=== PATIENT | female | born 1990 | race Two or more races ===

== ENCOUNTER 2023-04-10 09:45 | Outpatient (CLI) | payer OTHER | END 2023-04-10 09:51 | disposition home or self-care (01) | LOC: NUCLEAR 09:45 | PROVIDERS: ATTEND Internal Medicine | DX: R00.1 Bradycardia, unspecified (principal) ==

== ENCOUNTER 2024-10-07 09:23 | Outpatient (CLI) | payer OTHER | END 2024-10-07 09:24 | disposition home or self-care (01) | LOC: PRENATAL 09:23 | PROVIDERS: ATTEND Obstetrics & Gynecology Maternal & Fetal Medicine | DX: O36.80X0 Pregnancy with inconclusive fetal viability, not applicable or unspecified (principal); Z36.82 Encounter for antenatal screening for nuchal translucency; Z3A.11 11 weeks gestation of pregnancy ==

== ENCOUNTER 2024-10-30 21:32 | Emergency (ER) | payer OTHER ==
[~2024-10-30] VITALS: Ht 154.9 cm; Wt 85.3 kg
[2024-10-30] MEDS ORDERED: GILTUSS HONEY118 ML PO (23:17)
[2024-10-30] MEDS ORDERED: ZITHROMAX200 MG PO (23:17)
[2024-10-30] MEDS ORDERED: ACETAMINOPHEN500 M1 PO (23:17)
== END 2024-10-31 00:05 | disposition home or self-care (01) ==
LOC: ER 21:35
DX: O99.512 Diseases of the respiratory system complicating pregnancy, second trimester (principal); J06.9 Acute upper respiratory infection, unspecified; Z3A.15 15 weeks gestation of pregnancy

== ENCOUNTER → 2024-12-04 08:13 | Outpatient (CLI) | payer OTHER ==
[~2024-12-04 08:13] MED LIST: ACETAMINOPHEN500 M1 PO; GILTUSS HONEY118 ML PO; ZITHROMAX200 MG PO
== END | disposition home or self-care (01) ==
LOC: PRENATAL 08:13
PROVIDERS: ATTEND Obstetrics & Gynecology Maternal & Fetal Medicine
DX: O44.00 Complete placenta previa NOS or without hemorrhage, unspecified trimester (principal); Z3A.20 20 weeks gestation of pregnancy

== ENCOUNTER → 2025-01-28 11:35 | Outpatient (CLI) | payer OTHER | END | disposition home or self-care (01) | LOC: PRENATAL 11:35 | PROVIDERS: ATTEND Obstetrics & Gynecology Maternal & Fetal Medicine | DX: O26.849 Uterine size-date discrepancy, unspecified trimester (principal); O10.019 Pre-existing essential hypertension complicating pregnancy, unspecified trimester; O36.1999 Maternal care for other isoimmunization, unspecified trimester, other fetus; Z3A.28 28 weeks gestation of pregnancy ==

== ENCOUNTER 2025-03-09 16:29 | Outpatient (CLI) | payer OTHER | END 2025-03-09 16:32 | disposition home or self-care (01) | LOC: PRENATAL 16:29 | PROVIDERS: ATTEND Obstetrics & Gynecology | DX: O26.849 Uterine size-date discrepancy, unspecified trimester (principal); O36.8199 Decreased fetal movements, unspecified trimester, other fetus; O10.019 Pre-existing essential hypertension complicating pregnancy, unspecified trimester; Z3A.34 34 weeks gestation of pregnancy ==

== ENCOUNTER 2025-04-13 12:12 | Inpatient (IN) | payer OTHER ==
[~2025-04-13] VITALS: Ht 154.9 cm; Wt 3.2 kg
[2025-04-13] MEDS ORDERED: RINGERS SOLUTION,LACTATED 1,000 ML IV SCH (12:45)
[2025-04-13] MEDS ORDERED: AMPICILLIN SODIUM 2,000 MG VIAL IV ONE (12:45)
[2025-04-13 12:47] VITALS: BP 135/81
[2025-04-13] MEDS ORDERED: PRENATAL TABLE1 EAC1 PO (13:12)
[2025-04-13] MEDS ORDERED: ADULT LOW DOSE81 M1 PO (13:12)
[2025-04-13 14:34] LABS: URINE APPEARANCE Clear; URINE BILIRRUBIN Negative (NEGATIVE); URINE BLOOD Negative; URINE COLOR Yellow; URINE GLUCOSE Negative (NEGATIVE); URINE KETONE Negative (NEGATIVE); URINE LEUKOCYTE Negative; URINE NITRATE Negative; URINE PROTEIN Negative (NEGATIVE); URINE UROBILINOGEN 0.2 E.U./dl
[2025-04-13 14:41] LABS: BASO % 0.5 % (0.1-1.2); EOS # 0.07 (0.04-0.54); EOS % 0.8 % (0.7-7.0); LYMPH # 1.41 (1.18-3.74); LYMPH % 16.8 % (19.3-53.1); MEAN PLATELET VOLUME 13.80 fl (9.4-12.4); MONO # 0.79 (0.24-0.82); MONO % 9.4 % (4.7-12.5); NEUT # 6.05 (1.56-6.13); NEUT % 72.3 % (34.0-71.1); RED CELL DISTRIBUTION WIDTH 13.1 % (11.6-14.4)
[2025-04-13 14:41] LABS: URINE BACTERIA 388.5 uL (0.0-1933); URINE EPITHELIAL CELLS 6.4 uL (0.0-38.8); URINE WBC 4.9 uL (0.0-23.2)
[2025-04-13 14:49] LABS: URINE CAST 0.00 uL (0.0-1.40); URINE RBC 0.4 uL (0.0-20.8)
[2025-04-13 15:11] VITALS: BP 123/76
[2025-04-13 15:31] LABS: ALT/SGPT 23.0 U/L (12-78); AST/SGOT 17.0 U/L (15-37); BILIRUBIN TOTAL 0.33 mg/dL (0.3-1.2); BUN CREA RATIO 18.0 (7.0-25.0); CREATININE SERUM 0.49 mg/dL (0.55-1.02); GFR 144.56; GLOBULINA 3.4 G/DL (2.4-3.5); GLUCOSE FASTING 65.0 mg/dL (65-100); LDH 183.0 U/L (84-246); OSMOLALITY SERUM 278.0 MOSM/KG (275-295)
[2025-04-13 16:24] LABS: INR < 0.93
[2025-04-13] MEDS ORDERED: AMPICILLIN SODIUM 1,000 MG VIAL IV SCH (17:00)
[2025-04-13 18:48] VITALS: BP 115/76
[2025-04-14] VITALS (7 sets, daily range): BP systolic 113–129; BP diastolic 59–76
[2025-04-14] MEDS ORDERED: MISOPROSTOL 25 MCG/4 ML GEL.W.APPL VAG ONE ×4 (08:30→21:15)
[2025-04-15 02:59] VITALS: BP 113/73
[2025-04-15 07:36] VITALS: BP 116/67; BP 135/70
[2025-04-15] MEDS ORDERED: CEFAZOLIN SODIUM 1,000 MG VIAL IV SCH (09:45)
[2025-04-15] MEDS ORDERED: MORPHINE SULFATE 4 MG/ML CARTRIDGE IV PRN (12:15)
[2025-04-15] MEDS ORDERED: ONDANSETRON HCL 2 MG/ML VIAL IV PRN (12:15)
[2025-04-15] MEDS ORDERED: FF) RHO(D) IMMUNE GLOBULIN (POM) IM SCH (12:15)
[2025-04-15] MEDS ORDERED: OXYTOCIN 1,000 ML IV SCH (12:15)
[2025-04-15] MEDS ORDERED: CHLORHEXIDINE GLUCONATE 120 ML BOTTLE TOP NR (12:15)
[2025-04-15] MEDS ORDERED: RINGERS SOLUTION,LACTATED 1,000 ML IV SCH (12:15)
[2025-04-15] MEDS ORDERED: ONDANSETRON HCL 2 MG/ML VIAL IV NR (12:25)
[2025-04-15] MEDS ORDERED: KETOROLAC TROMETHAMINE 30 MG VIAL IV NR (12:25)
[2025-04-15] MEDS ORDERED: SIMETHICONE 125 MG CAPSULE PO SCH (13:00)
[2025-04-15] MEDS ORDERED: MORPHINE SULFATE 4 MG/ML VIAL IV ONE (13:50)
[2025-04-15 15:30] VITALS: BP 115/72
[2025-04-15] MEDS ORDERED: KETOROLAC TROMETHAMINE 30 MG VIAL IV SCH (18:00)
[2025-04-15] MEDS ORDERED: ACETAMINOPHEN 325 MG TABLET PO SCH (18:00)
[2025-04-16] VITALS: BP 108/69
[2025-04-16] MEDS ORDERED: OxyCODONE HCL 5 MG TABLET (ROXICODONE) PO PRN (06:00)
[2025-04-16 06:55] LABS: BASO % 0.4 % (0.1-1.2); EOS # 0.04 (0.04-0.54); EOS % 0.4 % (0.7-7.0); LYMPH # 1.08 (1.18-3.74); LYMPH % 10.7 % (19.3-53.1); MEAN PLATELET VOLUME 13.40 fl (9.4-12.4); MONO # 0.61 (0.24-0.82); MONO % 6.0 % (4.7-12.5); NEUT # 8.33 (1.56-6.13); NEUT % 82.3 % (34.0-71.1); RED CELL DISTRIBUTION WIDTH 13.3 % (11.6-14.4)
[2025-04-16 08:27] VITALS: BP 108/71
[2025-04-16 16:00] VITALS: BP 113/71
[2025-04-17 01:24] VITALS: BP 103/63
[2025-04-17] MEDS ORDERED: COLACE100 MG PO (08:05)
[2025-04-17] MEDS ORDERED: IBU800 MG PO (08:05)
[2025-04-17] MEDS ORDERED: SIMETHICONE125 M1 PO (08:05)
[2025-04-17 08:34] VITALS: BP 96/60
== END 2025-04-17 14:53 | disposition home or self-care (01) | DRG 787 ==
LOC: LDR 12:12 → OB/GYN 04-15 09:19 → LDR 04-15 09:39 → OB/GYN 04-15 13:30
PROVIDERS: ADMIT Obstetrics & Gynecology; ATTEND Obstetrics & Gynecology
PROC: 4A1HXCZ Monitoring of Products of Conception, Cardiac Rate, External Approach (ICD-10-PCS; 2025-04-13)
PROC: 3E0P7VZ Introduction of Hormone into Female Reproductive, Via Natural or Artificial Opening (ICD-10-PCS; 2025-04-14)
PROC: 3E033VJ Introduction of Other Hormone into Peripheral Vein, Percutaneous Approach (ICD-10-PCS; 2025-04-15)
PROC: 10D00Z1 Extraction of Products of Conception, Low, Open Approach (ICD-10-PCS; principal; 2025-04-15 19:45)
DX: O61.0 Failed medical induction of labor (principal); O41.03X0 Oligohydramnios, third trimester, not applicable or unspecified; O99.824 Streptococcus B carrier state complicating childbirth; Z3A.39 39 weeks gestation of pregnancy; Z37.0 Single live birth